=== PATIENT | male | born 1970 ===

== ENCOUNTER 2017-05-13 10:56 | Day surgery (SDC) | payer OTHER ==
[~2017-05-13 10:56] MED LIST: Lactated Ringers 1,000 ML IV SCH; Lidocaine 1%/Sod Bicarbonate in NS 8.4% 1 ML Syringe PRN; Sodium Chloride 0.9% 10 ML Syringe FLUSH PRN
[2017-05-13] MEDS ORDERED: EPINEPHrine 1 MG/ML 30 ML MDV ONE (11:05)
[2017-05-13] MEDS ORDERED: Bupivacaine 0.25% 30 ML SDV ONE (11:05)
[2017-05-13] MEDS ORDERED: Propofol 200 MG/20 ML SDV ONE ×2 (11:31→12:06)
[2017-05-13] MEDS ORDERED: Midazolam 1 MG/ML 2 ML SDV ONE (11:32)
[2017-05-13] MEDS ORDERED: Ondansetron 4 MG/2 ML SDV ONE (11:32)
[2017-05-13] MEDS ORDERED: ceFAZolin 1 GM Vial ONE (11:32)
[2017-05-13] MEDS ORDERED: Lidocaine 1% 4 ML ONE (11:32)
[2017-05-13] MEDS ORDERED: fentaNYL 250 MCG/5 ML SDV ONE (11:32)
[2017-05-13] MEDS ORDERED: Dexamethasone 4 MG/ML 5 ML MDV ONE (11:32)
[2017-05-13] MEDS ORDERED: Vancomycin 1 GM, Vancomycin 500 MG in Sodium Chloride 0.9% 500 ML IV ONE (12:00)
--- NOTE | 2017-05-13 12:00 | PCM.PREANE ---
Preanesthetic Assessment - Procedure Proposed Procedure: Right KVA - Anesthesia/Transfusion/Family Hx Anesthesia History: Prior Anesthesia Without Reaction Family History of Anesthesia Reaction: No Transfusion History: No Prior Transfusion(s) Intubation History: Unknown - Review of Systems General: No Symptoms Pulmonary: Other (? undiagnosed SHANTELL, pts said he snores terribly and " wakes himself up all night because he is not breathing") Cardiovascular: Other (HTN) Gastrointestinal: No Symptoms, Other (PT had GERD about 10 years ago prior to his [employer] Shiva. Now does not suffer from GERD.) Neurological: No Symptoms Other: Reports: Depression, Anxiety - Physical Assessment NPO Status Date: 05/13/17 NPO Status Time: 04:00 O2 Sat by Pulse Oximetry: 96 Respiratory Rate: 18 Vital Signs: Last Vital Signs Temp 36.9 C 05/13/17 11:00 Pulse 71 05/13/17 11:00 Resp 18 05/13/17 11:00 BP 122/87 05/13/17 11:00 Pulse Ox 96 05/13/17 11:00 Height: 1.85 m Weight: 107.955 kg ASA Class: 2 Mental Status: Alert & Oriented x3 Airway Class: Mallampati = 1 Dentition: Reports: Normal Dentition (front top left tooth is an implant) Thyro-Mental Finger Breadths: 3 Mouth Opening Finger Breadths: 3 ROM/Head Extension: Full Lungs: Clear to Auscultation, Normal Respiratory Effort Cardiovascular: Regular Rate, Regular Rhythm - Lab Values: Laboratory Last Values MRSA (PCR) Positive H 05/05/17 14:52 - Allergies Allergies/Adverse Reactions: Allergies Allergy/AdvReac Type Severity Reaction Status Date / Time minocycline Allergy Hives Verified 05/13/17 11:51 Penicillins Allergy Other Verified 05/13/17 11:51 - Blood Blood Available: No Product(s) Available: None - Anesthesia Plan Beta Aston: Atenolol Med Last Dose Date: 05/12/17 Med Last Dose Time: 22:30 - Acknowledgements Anesthesia Type Planned: General Anesthesia (LMA) Pt an Appropriate Candidate for the Planned Anesthesia: Yes Alternatives and Risks of Anesthesia Discussed w Pt/Guardian: Yes Pt/Guardian Understands and Agrees with Anesthesia Plan: Yes PreAnesthesia Questionnaire HEENT History: Reports: None Cardiovascular History: Reports: Hypertension Respiratory History: Reports: None Gastrointestinal History: Reports: Inflammatory Bowel Disease Genitourinary History: Reports: Renal Calculus 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 Musculoskeletal History: Reports: Other (See Below) Other Musculoskeletal History: R knee meidal meniscus tear, shoulder surgery Neurological History: Reports: None Psychiatric History: Reports: Other (See Below) Other Psychiatric History: insomnia Endocrine/Metabolic History: Reports: None Hematologic History: Reports: None Immunologic History: Reports: None Oncologic (Cancer) History: Reports: None Dermatologic History: Reports: None - Past Surgical History Head Surgeries/Procedures: Reports: None HEENT Surgical History: Reports: None Cardiovascular Surgical History: Reports: None Respiratory Surgical History: Reports: None GI Surgical History: Reports: Cholecystectomy, Colonoscopy, Hernia, Inguinal, Shiva Fundoplication Female Surgical History: Reports: None Male Surgical History: Reports: None Endocrine Surgical History: Reports: None Neurological Surgical History: Reports: None Musculoskeletal Surgical History: Reports: None Oncologic Surgical History: Reports: None Dermatological Surgical History: Reports: None - SUBSTANCE USE Smoking Status *Q: Never Smoker Recreational Drug Use History: No - HOME MEDS Home Medications: Home Meds Atenolol 50 mg PO DAILY 06/18/16 [History] Zolpidem [Ambien] 10 mg PO DAILY 06/18/16 [History] Amitriptyline [Elavil] 50 mg PO BEDTIME 05/12/17 [History] Aspirin 325 mg PO BID #56 tablet 05/12/17 [Rx] Cholestyramine/Sucrose [Cholestyramine] 1 dose PO Q48H 05/12/17 [History] Escitalopram Oxalate [Escitalopram Oxalate] 20 mg PO DAILY 05/12/17 [History] Hydrocodone/Acetaminophen [[place] 5-325 Tablet] 1 - 2 each PO Q6H PRN #40 tablet 05/12/17 [Rx] L.acidoph,Paracasei, B.lactis [Probiotic] 1 cap PO DAILY 05/12/17 [History] - CURRENT (IN HOUSE) MEDS Current Meds: Current Medications Lactated Ringer's (Ringers, Lactated) 1,000 mls @ 125 mls/hr IV ASDIRECTED MARTA Stop: 05/13/17 23:00 Last Admin: 05/13/17 11:15 Dose: 125 mls/hr Vancomycin HCl 1 gm/Vancomycin HCl 500 mg/ Sodium Chloride 500 mls @ 333 mls/ hr IV ONETIME ONE Stop: 05/13/17 13:30 Lidocaine/Sodium Bicarbonate (Buffered Lidocaine 1% In Ns 8.4%) 0.25 ml .XX ONETIME PRN PRN Reason: Prior to IV Start Stop: 05/13/17 18:00 Last Admin: 05/13/17 11:14 Dose: 0.25 ml Sodium Chloride (Saline Flush) 10 ml FLUSH ASDIRECTED PRN PRN Reason: Keep Vein Open Stop: 05/13/17 18:00 Discontinued Medications Bupivacaine HCl (Marcaine 0.25%) Confirm Administered Dose 30 ml .ROUTE .STK- MED ONE Stop: 05/13/17 11:06 Cefazolin Sodium (Ancef) Confirm Administered Dose 2 gm .ROUTE .STK-MED ONE Stop: 05/13/17 11:33 Dexamethasone (Dexamethasone) Confirm Administered Dose 20 mg .ROUTE .STK-MED ONE Stop: 05/13/17 11:33 Epinephrine HCl (Adrenalin 1:1000) Confirm Administered Dose 30 mg .ROUTE .STK- MED ONE Stop: 05/13/17 11:06 Fentanyl (Sublimaze) Confirm Administered Dose 250 mcg .ROUTE .STK-MED ONE Stop: 05/13/17 11:33 Lidocaine HCl (Xylocaine-Mpf 1%) Confirm Administered Dose 4 mls @ as directed .ROUTE .STK-MED ONE Stop: 05/13/17 11:33 Midazolam HCl (Versed 1 Mg/Ml) Confirm Administered Dose 2 mg .ROUTE .STK-MED ONE Stop: 05/13/17 11:33 Ondansetron HCl (Zofran) Confirm Administered Dose 4 mg .ROUTE .STK-MED ONE Stop: 05/13/17 11:33 Propofol (Diprivan 20 Ml) Confirm Administered Dose 200 mg .ROUTE .STK-MED ONE Stop: 05/13/17 11:32
[2017-05-13] MEDS ORDERED: diphenhydrAMINE 50 MG/ML SDV IVPUSH PRN (13:05)
[2017-05-13] MEDS ORDERED: fentaNYL 100 MCG/2 ML SDV IVPUSH PRN (13:05)
[2017-05-13] MEDS ORDERED: Ondansetron 4 MG/2 ML SDV IVPUSH PRN (13:05)
[2017-05-13] MEDS ORDERED: Meperidine PF 50 MG/ML Syringe IVPUSH PRN (13:05)
--- NOTE | 2017-05-13 13:05 | PCM.POSTAN ---
POST ANESTHESIA ASSESSMENT - MENTAL STATUS Mental Status: Alert, Oriented - VITAL SIGNS Pulse Rate: 76 SaO2: 94 Resp Rate: 9 Blood Pressure: 122/87 Temperature: 36.8 C - RESPIRATORY Respiratory Status: Respiratory Rate WNL, Airway Patent, O2 Saturation Stable, Supplemental Oxygen - CARDIOVASCULAR CV Status: Pulse Rate WNL, Blood Pressure Stable - GASTROINTESTINAL GI Status: No Symptoms - PAIN Pain Score: 0 - POST OP HYDRATION Hydration Status: Adequate & Stable
--- NOTE | 2017-05-13 13:33 | PCM48HPAN ---
Post Anesthesia Note - EVALUATION WITHIN 48HRS OF ANESTHETIC Vital Signs in Normal Range: Yes Patient Participated in Evaluation: Yes Respiratory Function Stable: Yes Airway Patent: Yes Cardiovascular Function Stable: Yes Hydration Status Stable: Yes Pain Control Satisfactory: Yes Nausea and Vomiting Control Satisfactory: Yes Mental Status Recovered: Yes
[2017-05-13] MEDS ORDERED: HYDROmorphone 0.5 MG/0.5 ML Syringe IVPUSH PRN (14:00)
[2017-05-13 15:31] VITALS: BP 133/88
--- NOTE | 2017-05-20 07:07 | PCM.OPNOTE ---
- General Post-Op/Procedure Note Date of Surgery/Procedure: 05/13/17 Operative Procedure(s): right knee video arthroscopy with partial medial meniscectomy Pre Op Diagnosis: right knee medial meniscus tear Post-Op Diagnosis: Same Anesthesia Technique: General LMA, Local Primary Surgeon: Thien Schulte Anesthesia Provider: Eduar Richards Wrapper Cashier: Aruna Tran EBEsau in mLs: 5 Complications: None Condition: Good
--- NOTE | 2017-05-20 07:39 | OR ---
DATE OF OPERATION: 05/13/2017 SURGEON: Thien Schulte MD OPERATION PERFORMED: Right knee video arthroscopy with partial medial meniscectomy. PREOPERATIVE DIAGNOSIS: Right knee medial meniscus tear. POSTOPERATIVE DIAGNOSIS: Right knee medial meniscus tear. ANESTHESIA: General LMA with local. ANESTHESIA PROVIDER: Dr. Eduar Richards. ASSISTANTS: Aruna Tran LPN ESTIMATED BLOOD LOSS: 5 mL. COMPLICATIONS: None. CONDITION: Stable DESCRIPTION OF PROCEDURE: The patient was identified in the preop holding area. Proper site was marked and identified by the surgeon. The patient was taken back to the operating theater where after adequate anesthesia, the patient's left lower extremity was placed in a well-leg west[place]. Right lower extremity was placed in a nonsterile tourniquet and a C-clamp west[place]. At this time, the right lower extremity was then sterilely prepped and draped in the usual sterile fashion. OR time-out was performed. The patient received 2 g of IV Ancef. Right lower extremity was then exsanguinated. Tourniquet was insufflated to 250 mmHg. Standard anterior lateral portal incision was made. The scope trocar was introduced. 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 There were no loose foreign bodies. Attention was turned to the medial compartment. In the medial compartment, with use of a spinal needle, anterior medial portal was created. At this time, the patient was noted to have a diffuse tear of the posterior horn of the medial meniscus. At this time, the posterior 3rd of the medial meniscus was removed as it was found to be significantly unstable. The remaining 2/3rd of the medial meniscus was left. At this time, all loose pieces were removed from the knee. The ACL was found to be intact in the notch. Lateral compartment showed no signs of chondromalacia or meniscus tear. At this time, excess saline was drained from the knee. A 3-0 nylon simple suture was used for closure of the skin. The patient was placed in a sterile soft dressing and sent to PACU in stable condition. MMODAL /[id number]
== END 2017-05-13 15:15 | disposition home or self-care (01) ==
LOC: JD.SDS 10:56
PROVIDERS: ATTEND Orthopaedic Surgery
DX: S83.241A Other tear of medial meniscus, current injury, right knee, initial encounter (principal); I10 Essential (primary) hypertension; F32.9 Major depressive disorder, single episode, unspecified; Y93.67 Activity, basketball; Z88.0 Allergy status to penicillin; Z88.1 Allergy status to other antibiotic agents; Z79.899 Other long term (current) drug therapy; Z90.49 Acquired absence of other specified parts of digestive tract; Z98.890 Other specified postprocedural states
CPT/HCPCS: 29881; 87641; J0171; J0690; J1100; J2250; J2405; J3010; J3370; J3490; J7040; J7120; 01400; J2704

== ENCOUNTER 2017-05-22 23:26 | Emergency (ER) | payer OTHER ==
[2017-05-22 23:49] VITALS: BP 154/96
--- NOTE | 2017-05-23 00:09 | EDM.PDOC ---
ED HPI GENERAL MEDICAL PROBLEM - General Chief Complaint: Flank Pain Stated Complaint: SIDE PAINS Time Seen by Provider: 05/23/17 00:08 Source of Information: Reports: Patient, Family (spouse) History Limitations: Reports: No Limitations - History of Present Illness INITIAL COMMENTS - FREE TEXT/NARRATIVE: 46-year-old male presents to the ED with acute onset of left flank and radha- abdominal pain. He states all day today while he was out fishing had a constant feeling of need to void about every 5 minutes or defecate but was unable to do so. About 1800 hrs. she developed sudden onset of severe left flank pain rating down towards the left groin. It up then for a few hours and then came back again. He was to go to a wedding tonight but deferred it because of the pain. Associated nausea without any vomiting. Patient does have a history of recurrent renal colic involving both sides. He's had at least 4 attacks without need for lithotripsy. Currently pain is rating down towards the left testicle. This suggests a stone at the UVJ. He has not no cine blood in his urine. At present the pain is lateral upper again. On the way to the hospital he was in severe pain suggesting the stone is continuing to move. Onset: Sudden (Yesterday) Onset Date: 05/22/17 Onset Time: 18:00 Duration: Hour(s): Location: Reports: Abdomen (Left flank and left hemiabdomen with pain rating down to the left groin) Quality: Reports: Pressure, Sharp, Stabbing Severity: Severe (When the pain is severe it's 10 out of 10.) Improves with: Reports: None ( At presentation little to no discomfort.) Worsens with: Reports: None Context: Denies: Activity, Exercise, Lifting, Sick Contact, Trauma, Other Associated Symptoms: Reports: Loss of Appetite (Nausea without vomiting), Malaise, Nausea/Vomiting Treatments LOCOMOTIVE OILER: Reports: NSAIDS left side Pain Score (Numeric/FACES): 6 - Related Data Allergies Allergy/AdvReac Type Severity Reaction Status Date / Time minocycline Allergy Hives Verified 05/22/17 23:49 Penicillins Allergy Other Verified 05/22/17 23:49 Home Meds: Home Meds Atenolol 50 mg PO DAILY 06/18/16 [History] Zolpidem [Ambien] 10 mg PO DAILY 06/18/16 [History] Amitriptyline [Elavil] 50 mg PO BEDTIME 05/12/17 [History] Aspirin 325 mg PO BID #56 tablet 05/12/17 [Rx] Cholestyramine/Sucrose [Cholestyramine] 1 dose PO Q48H 05/12/17 [History] Escitalopram Oxalate 20 mg PO DAILY 05/12/17 [History] Hydrocodone/Acetaminophen [[place] 5-325 Tablet] 1 - 2 each PO Q6H PRN #40 tablet 05/12/17 [Rx] L.acidoph,Paracasei, B.lactis [Probiotic] 1 cap PO DAILY 05/12/17 [History] Cholecalciferol (Vitamin D3) [D3 Dots] 2,000 unit PO DAILY 05/22/17 [History] Ondansetron [Zofran ODT] 4 mg PO Q6H #2 tab.dis 05/23/17 [Rx] Ondansetron [Zofran ODT] 4 mg PO Q6H #5 tab.dis 05/23/17 [Rx] Past Medical History HEENT History: Reports: None Cardiovascular History: Reports: Hypertension Respiratory History: Reports: None Gastrointestinal History: Reports: Inflammatory Bowel Disease Genitourinary History: Reports: Renal Calculus 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 Right knee arthroscopy done last week and is improved already. Is using Motrin only for pain relief. Neurological History: Reports: None Psychiatric History: Reports: Anxiety, Other (See Below) Other Psychiatric History: insomnia Endocrine/Metabolic History: Reports: None Hematologic History: Reports: None Immunologic History: Reports: None Oncologic (Cancer) History: Reports: None Dermatologic History: Reports: None - Past Surgical History Head Surgeries/Procedures: Reports: None HEENT Surgical History: Reports: None Cardiovascular Surgical History: Reports: None Respiratory Surgical History: Reports: None GI Surgical History: Reports: Cholecystectomy, Colonoscopy, Hernia, Inguinal, Shiva Fundoplication Male Surgical History: Reports: None Endocrine Surgical History: Reports: None Neurological Surgical History: Reports: None Musculoskeletal Surgical History: Reports: None Oncologic Surgical History: Reports: None Dermatological Surgical History: Reports: None Social & Family History - Family History Family Medical History: Noncontributory - Tobacco Use Smoking Status *Q: Never Smoker - Caffeine Use Caffeine Use: Reports: None - Recreational Drug Use Recreational Drug Use: No - Living Situation & Occupation Living situation: Reports: Occupation: Employed ED ROS GENERAL - Review of Systems Review Of Systems: See Below Constitutional: Reports: Decreased Appetite. Denies: Fever, Chills, Malaise, Weakness, Fatigue, Weight Loss HEENT: Reports: No Symptoms Respiratory: Reports: No Symptoms Endocrine: Reports: No Symptoms GI/Abdominal: Reports: Abdominal Pain (Pain left hemiabdomen rating down to the left groin and testicle area.), Nausea (With no vomiting) : Reports: Other (Pain rating down to the left testicle. Really no need to void a lot without ability to void.) Musculoskeletal: Reports: Back Pain Skin: Reports: No Symptoms Neurological: Reports: No Symptoms (Left flank pain) Psychiatric: Reports: No Symptoms Hematologic/Lymphatic: Reports: No Symptoms Immunologic: Reports: No Symptoms ED EXAM, RENAL/ - Physical Exam Exam: See Below Exam Limited By: No Limitations General Appearance: Alert, WD/WN, No Apparent Distress (Pain-free at this time.) Eye Exam: Bilateral Eye: Normal Inspection (No jaundice) Throat/Mouth: Normal Inspection, Normal Lips, Normal Teeth, Normal Oropharynx Head: Atraumatic, Normocephalic Respiratory/Chest: No Respiratory Distress, Lungs Clear, Normal Breath Sounds, No Accessory Muscle Use Cardiovascular: Normal Peripheral Pulses, Regular Rate, Rhythm, No Edema, No Gallop, No Murmur GI/Abdominal: Normal Bowel Sounds, Soft, Non-Tender, No Organomegaly, No Abnormal Bruit, No Mass, Pelvis Stable, Other (Small umbilical hernia which is asymptomatic.). No: Guarding, Rigid, Rebound, Tender Back Exam: No: CVA Tenderness (L), CVA Tenderness (R) Extremities: Normal Inspection, Normal Range of Motion, Non-Tender, No Pedal Edema, Other (Band-Aid over his right anterior knee where he underwent arthroscopy earlier this last week.) Neurological: Alert, Oriented, CN II-XII Intact, Normal Cognition, Normal Gait Psychiatric: Normal Affect, Normal Mood Skin Exam: Warm, Dry, Intact, Normal Color, No Rash Course - Vital Signs Last Recorded V/S: Last Vital Signs Temp 36.4 C 05/22/17 23:45 Pulse 65 05/22/17 23:45 Resp 18 05/22/17 23:45 BP 154/96 H 05/22/17 23:45 Pulse Ox 96 05/22/17 23:45 - Orders/Labs/Meds Orders: Active Orders 24 hr Category Date Time Status Abdomen Pelvis wo Cont [CT] Stat Exams 05/23/17 00:08 Taken URINALYSIS W/MICROSCOPIC [UA W/MICROSCOPIC] [URIN] Stat Lab 05/23/17 00:09 Uncollected Meds: Medications Discontinued Medications Generic Name Dose Route Start Last Admin Trade Name Elvin PRN Reason Stop Dose Admin Tamsulosin HCl 0.4 mg 05/23/17 01:03 05/23/17 01:17 Flomax PO 05/23/17 01:04 0.4 mg ONETIME ONE Administration - Radiology Interpretation Free Text/Narrative:: 46-year-old male attends the ED with acute onset of left flank and left radha- abdominal pain rating down to the left groin and testicle about 1800 hrs. yesterday. Thought the day yesterday he had a feeling of need to void but was unable to do so. He has a history of renal colic at least 4 times in the past has passed all his stones on his own volition without need for lithotripsy. He believes the last attack was on the right side. Associated nausea without any vomiting. Pain has been coming and going since 1800 hrs. last evening. This suggests a stone is continued to move and currently is likely done at the UVJ as his pain is radiating down to the testicle. At present he is pretty well pain free and does not want analgesia at this time. And urinalysis to be done and CT scan of the abdomen and pelvis be done per renal protocol. - Re-Assessments/Exams Free Text/Narrative Re-Assessment/Exam: 05/23/17 00:59 CT of the abdomen and pelvis has been completed. There is a 3.8- 4 mm stone at the left UVJ approximately a centimeter above the junction with the urinary bladder. There is a mild to moderate degree of obstruction of the left ureter and kidney on that side. There are faint calcifications throughout both kidneys but no well-formed stone at this time. Pancreas is normal gallbladder is absent liver appears healthy. Patient has hydrocodone tablets at home which she can use intermittently for pain relief. I will send him home is Zofran 4 mg sublingually every 4-6 hours when necessary for nausea relief. Departure - Departure Time of Disposition: 01:01 Disposition: Home, Self-Care 01 Condition: Fair Clinical Impression: Renal colic on left side - Discharge Information Prescriptions: Ondansetron [Zofran ODT] 4 mg PO Q6H #2 tab.dis Ondansetron [Zofran ODT] 4 mg PO Q6H #5 tab.dis Instructions: Kidney Stones, [id number] Referrals: Humberto Martin MD [Primary Care Provider] - Forms: ED Department Discharge Additional Instructions: Evaluation the emergency room tonight in regards to intermittent severe left radha-abdominal pain rating down to the groin into the left testicle since 1800 hrs. yesterday. Noted continued feeling of need to void and defecate throughout the day. These are all signs and symptoms of a kidney stone. CT confirms a 3.8- 4 mm stone at the lower portion of the left ureter. It has to travel about 1.5 cm to enter the urinary bladder at which time your pain would be gone. Treatment is therefore hydrocodone tablets one or 2 every 4 hours as necessary for pain relief. You're given Flomax 0. 4 mg tablet in the ED in an effort to help her pass the stone over the next 24 hours. Zofran 4 mg may be taken under the tongue every 4-6 hours as necessary for nausea relief caused by the severe pain. Suggest straining the urine until stone has been noted to have passed. - My Orders Last 24 Hours: My Active Orders 05/23/17 00:08 Abdomen Pelvis wo Cont [CT] Stat 05/23/17 00:09 URINALYSIS W/MICROSCOPIC [UA W/MICROSCOPIC] [URIN] Stat - Assessment/Plan Last 24 Hours: My Active Orders 05/23/17 00:08 Abdomen Pelvis wo Cont [CT] Stat 05/23/17 00:09 URINALYSIS W/MICROSCOPIC [UA W/MICROSCOPIC] [URIN] Stat
[2017-05-23] MEDS ORDERED: Tamsulosin 0.4 MG Cap.ER PO ONE (01:03)
[2017-05-23] MEDS ORDERED: Ondansetron 4 MG Tab.DIS ONE (01:44)
--- NOTE | 2017-05-24 08:58 | CT ---
CT abdomen and pelvis Technique: Multiple axial sections were obtained from above the dome of the diaphragm inferiorly through the pubic symphysis. Intravenous and oral contrast not utilized. Study has been performed as a ureteral stone protocol. Comparison: No prior CT exam. Findings: Left ureter is mildly dilated. This dilatation is due to an obstructing stone within the distal left ureter located slightly proximal to the UVJ measuring approximately 4.5 mm. No other abnormal calcifications are seen along the course of the ureters. Very minimal calcification is seen within both kidneys compatible with nonobstructing calculi. Small portion of the visualized lung bases show nothing acute. Noncontrast appearance of the liver and spleen appears within normal limits. Adrenal glands show no nodule. Pancreas appears within normal limits. Surgical clips are seen from prior cholecystectomy. Aorta shows no aneurysmal dilatation. No retroperitoneal adenopathy or mesenteric abnormalities are seen. No pelvic mass or adenopathy is seen. No free fluid is seen. Bone window settings were reviewed which appear within normal limits for the patient's age. Impression: 1. Mildly dilated left ureter caused by an approximate 4.5 mm stone within the distal left ureter slightly proximal to the UVJ. 2. Minimal calcifications within both kidneys. 3. No additional abnormality is noted on noncontrast CT study of the abdomen and pelvis. Diagnostic code #3 Agree with preliminary report issued by [facility] ([facility] preliminary report dictated on 05/23/17, 1:43 AM Central Time)
== END 2017-05-23 01:15 | disposition home or self-care (01) ==
LOC: JD.ED 23:26
DX: N20.1 Calculus of ureter (principal); I10 Essential (primary) hypertension; F41.9 Anxiety disorder, unspecified; Z90.49 Acquired absence of other specified parts of digestive tract; Z88.0 Allergy status to penicillin; Z88.1 Allergy status to other antibiotic agents; Z79.82 Long term (current) use of aspirin; Z79.899 Other long term (current) drug therapy
CPT/HCPCS: 74176; 99284; A9270; 99283